=== PATIENT | female | born 2000 | race Hispanic/Latino ===

== ENCOUNTER 2019-03-31 18:06 | Emergency (ER) | payer OTHER ==
[~2019-03-31] VITALS: Ht 167.6 cm; Wt 68.2 kg
[2019-03-31] MEDS ORDERED: IBUPROFEN 600 MG TAB PO ONE (18:30)
--- NOTE | 2019-03-31 19:13 | REP ---
REASON: Pain after twisting injury. COMPARISON: None. FINDINGS: No acute fracture or destructive osseous lesion. The mortise is intact. Electronically Signed by Kraig Her DO 03/31/2019 07:54 P
[2019-03-31] MEDS ORDERED: IBUP-1022 PO (19:26)
[2019-03-31 19:33] VITALS: BP 120/62
== END 2019-03-31 19:36 | disposition home or self-care (01) ==
LOC: M ED 18:06
DX: S93.402A Sprain of unspecified ligament of left ankle, initial encounter (principal); X50.9XXA Other and unspecified overexertion or strenuous movements or postures, initial encounter; Y92.89 Other specified places as the place of occurrence of the external cause; Y99.0 Civilian activity done for income or pay

== ENCOUNTER 2019-04-15 17:21 | Emergency (ER) | payer OTHER ==
[~2019-04-15] VITALS: Ht 167.6 cm; Wt 68.2 kg
[~2019-04-15 17:21] MED LIST: IBUP-1022 PO
[2019-04-15 21:12] LABS: CHLAMYDIA DNA AMPLIFICATION POSITIVE (NEGATIVE); GC DNA AMPLIFICATION NEGATIVE (NEGATIVE)
[2019-04-15 21:30] VITALS: BP 107/55
[2019-04-15] MEDS ORDERED: AZITHROMYCIN 250 MG TAB PO ONE (21:30)
[2019-04-18 11:06] LABS: HEPATITIS B SURFACE ANTIBODY POSITIVE (POSITIVE); HEPATITIS B SURFACE ANTIGEN NEGATIVE (NEGATIVE); HEPATITIS C VIRUS ABY INDEX 0.1 INDEX (<0.8); HIV 1&2 SCREEN CENTAUR NEGATIVE (NEGATIVE)
== END 2019-04-15 21:50 | disposition home or self-care (01) ==
LOC: M ED 17:21
DX: A56.09 Other chlamydial infection of lower genitourinary tract (principal); N89.8 Other specified noninflammatory disorders of vagina; N92.5 Other specified irregular menstruation

== ENCOUNTER → 2020-10-15 | Outpatient (CLI) | payer BC, OTHER ==
--- NOTE | 2020-10-16 05:39 | REP ---
INDICATION: PREG, DATING/VIABILITY COMPARISON: None. TECHNIQUE: Transabdominal and transvaginal 1st trimester obstetrical ultrasound with color Doppler evaluation. FINDINGS: Anteverted uterus measures 9.5 x 4.6 x 6.1 cm and demonstrates decidual reaction. A presumed gestational sac with yolk sac measuring 10.4 mm mean sac diameter corresponding to 5 weeks 5 days gestational age. No pole yet identified. Bilateral ovaries are normal in vascularity without torsion. Right ovary measures 2.4 x 1.4 x 2.6 cm (RI 0.51). Left ovary measures 3.2 x 2.2 x 3.0 cm (RI 0.56) and includes 2.4 x 1.4 x 1.9 cm corpus luteal cyst. IMPRESSION: Findings suggest early intrauterine with gestational sac and yolk sac measuring at 5 weeks 5 days gestational age. No pole yet identified. Correlation with serial HCG levels and repeat ultrasound as necessary. <Electronically signed by Alexis Mc > 10/16/20 [id number]
== END ==
LOC: M RAD 15:40
PROVIDERS: ATTEND Physician Assistant Medical
DX: Z32.01 Encounter for pregnancy test, result positive (principal); Z3A.01 Less than 8 weeks gestation of pregnancy

== ENCOUNTER 2021-05-17 08:14 | Emergency (ER) | payer OTHER ==
[~2021-05-17] VITALS: Ht 167.6 cm; Wt 67.9 kg
[2021-05-17 10:01] LABS: HEMATOCRIT 41.7 % (36.0-47.0); HEMOGLOBIN 13.3 g/dl (12.0-15.5); MEAN CORPUSCULAR HEMOGLOBIN 29.8 pg (27.0-33.0); MEAN CORPUSCULAR HGB CONC 31.9 g/dl (32.0-36.5); MEAN CORPUSCULAR VOLUME 93.3 fl (80.0-96.0); PLATELET COUNT, AUTOMATED 255 10^3/uL (150-450); RED BLOOD COUNT 4.47 10^6/uL (4.00-5.40); WHITE BLOOD COUNT 8.7 10^3/uL (4.0-10.0)
[2021-05-17] MEDS ORDERED: NS 1,000 ML IV ONE (10:15)
[2021-05-17 10:34] LABS: ALBUMIN 4.4 GM/DL (3.2-5.2); ALT/SGPT 36 U/L (12-78); BILIRUBIN,DIRECT 0.1 MG/DL (0.0-0.2); BILIRUBIN,TOTAL 0.4 MG/DL (0.2-1.0); LIPASE 140 U/L (73-393); TOTAL PROTEIN 8.1 GM/DL (6.4-8.2)
[2021-05-17 10:44] LABS: HCG, SERUM QUALITATIVE NEGATIVE (NEGATIVE)
[2021-05-17 11:47] VITALS: BP 93/54
== END 2021-05-17 11:51 | disposition home or self-care (01) ==
LOC: M ED 08:14
DX: N93.9 Abnormal uterine and vaginal bleeding, unspecified (principal); R51.9 Headache, unspecified; E86.0 Dehydration; N94.6 Dysmenorrhea, unspecified